=== PATIENT | male | born 1965 | race Caucasian/White ===

== ENCOUNTER 2020-01-12 22:04 | Inpatient (IN) | payer OTHER ==
[~2020-01-12] VITALS: Ht 182.9 cm; Wt 79.0 kg
[~2020-01-12 22:04] MED LIST: ETOMIDATE 20 MG/10 ML ONE; SUCCINYLCHOLINE 20 MG/ML, 10ML ONE
[2020-01-12] MEDS ORDERED: ONDANSETRON 2MG/ML, 2ML ONE (22:22)
[2020-01-12] MEDS ORDERED: PIPERACILLIN/TAZO/PMX 3.375GM 50 ML ONE (22:22)
[2020-01-12] MEDS ORDERED: NOREPINEPHRINE 1 MG/ML, 4ML ONE (22:23)
[2020-01-12] MEDS ORDERED: NOREPINEPHRINE 8 MG in SODIUM CHLORIDE 0.9% 242 ML IV PRN (22:30)
[2020-01-12] MEDS ORDERED: PLEASE ENTER ALLERGIES MC SCH (22:30)
[2020-01-12] MEDS ORDERED: VANCOMYCIN PER PHARMACY MC ONE (22:30)
[2020-01-12] MEDS ORDERED: PLEASE ENTER HEIGHT AND WEIGHT MC SCH ×2 (22:30)
[2020-01-12] MEDS ORDERED: PIPERACILLIN/TAZO/PMX 3.375GM 50 ML IVPB ONE (22:30)
--- NOTE | 2020-01-12 22:30 | NUR ---
PATIENT IS NOT ADEQUATELY SEDATED, WILL ATTEMPT TO SEDATE PATIENT PROPERLY. PATIENT WILL BE STARTED ON PROPOFOL, AND CONTINUED OF LEVOPHED. PATIENT PLACED IN FOUR POINT SOFT RESTRAINTS RELATED TO PATIENT SEDATION STATUS.
[2020-01-12 22:50] LABS: MEAN CORPUSCULAR HEMOGLOBIN 31.5 pg (27.5-34.5); MEAN CORPUSCULAR HGB CONC 32.3 g/dL (33.2-36.2); MEAN CORPUSCULAR VOLUME 97.3 fL (81-97); MEAN PLATELET VOLUME 9.8 fL (7.4-10.4); PLATELET COUNT 238 x10^3/uL (130-400); RED BLOOD COUNT 5.83 x10^6/uL (4.38-5.82); RED CELL DISTRIBUTION WIDTH 12.5 % (9.4-14.8)
[2020-01-12] MEDS ORDERED: ACETAMINOPHEN 325 MG SUPP ONE ×2 (22:56→22:58)
[2020-01-12] MEDS ORDERED: ACETAMINOPHEN 650 MG SUPP PR PRN (23:00)
[2020-01-12] MEDS ORDERED: ONDANSETRON 2MG/ML, 2ML IVPush ONE (23:00)
[2020-01-12] MEDS ORDERED: ETOMIDATE 20 MG/10 ML IVPush ONE (23:00)
[2020-01-12] MEDS ORDERED: MIDAZOLAM HCL 50 MG in SODIUM CHLORIDE 0.9% 40 ML IV PRN (23:05)
[2020-01-12] MEDS ORDERED: PROPOFOL 100 ML IV PRN (23:05)
[2020-01-12 23:12] LABS: ALBUMIN 3.5 g/dL (3.4-5.0); ANION GAP 18 mmol/L (5-15); CALCIUM 8.4 mg/dL (8.5-10.1); CHLORIDE 104 mmol/L (98-107)
[2020-01-12 23:14] LABS: ACETONE, SERUM Small (20mg/dL) (Negative)
[2020-01-12 23:18] LABS: ALANINE AMINOTRANSFERASE 57 U/L (12-78); ALKALINE PHOSPHATASE 98 U/L (45-117); BILIRUBIN,TOTAL 0.3 mg/dL (0.2-1.0); CREATININE 2.15 mg/dL (0.7-1.3); TOTAL PROTEIN 6.9 g/dL (6.4-8.2)
[2020-01-12 23:22] LABS: TROPONIN I 0.279 ng/mL (0.000-0.045)
[2020-01-12 23:29] LABS: MD YES
[2020-01-12] MEDS ORDERED: LACTATED RINGERS 1,000 ML IVBOLUS ONE (23:30)
[2020-01-12] MEDS ORDERED: INSULIN REGULAR 100 UNITS/ML, 3ML VIAL IVPush ONE (23:30)
[2020-01-12] MEDS ORDERED: VANCOMYCIN 1,600 MG in SODIUM CHLORIDE 0.9% 250 ML IV ONE (23:30)
--- NOTE | 2020-01-12 23:30 | NUR ---
PATIENT'S FAMILY AT BEDSIDE WITH PATIENT. PATIENT'S FAMILY UPDATED ON PLAN OF CARE. MOTHER AND GIRLFRIEND AT BEDSIDE WITH PATIENT.
[2020-01-12 23:41] LABS: BAND#(MANUAL) 9.36 x10^3/uL; BANDS%(MANUAL) 31 % (0-7); LYMPH#(MANUAL) 1.81 x10^3/uL (1-3.4); LYMPHS% (MANUAL) 6 % (22-44); METAMYELOCYTES% (MANUAL) 1 % (0-1); MONOS#(MANUAL) 3.93 x10^3/uL (0.3-2.7); MONOS% (MANUAL) 13 % (2-9); MYELOCYTES% (MANUAL) 2 % (0-0); SEG#(MANUAL) 14.19 x10^3/uL (1.8-6.8); SEGS% (MANUAL) 47 % (42-75)
[2020-01-12 23:43] LABS: <PLATELET ESTIMATE> ADEQUATE; LARGE PLATELETS 1+; POLYCHROMASIA 1+
[2020-01-12 23:44] LABS: ANISOCYTOSIS 1+
[2020-01-12] MEDS ORDERED: INSULIN SINGLE DOSE, ER ONE (23:57)
[2020-01-13] MEDS ORDERED: LISI-167 PO (00:38)
[2020-01-13] MEDS ORDERED: METF500T17 PO (00:38)
[2020-01-13] MEDS ORDERED: ROSU10TA2 PO (00:38)
[2020-01-13] MEDS ORDERED: DICL50TA2 PO (00:42)
--- NOTE | 2020-01-13 00:46 | NUR ---
PATIENT IS DIFFICULT TO SEDATE. PATIENT STARTED ON SECOND SEDATION DRIP, VERSED A RESULT. PATIENT'S BLOOD PRESSURES ARE TOLERATING SEDATION WELL, WITH LEVOPHED BEING ADMINISTERED.
--- NOTE | 2020-01-13 00:50 | NUR ---
CENTRAL LINE PLACEMENT COMPLETED, PATIENT TOLERATED WELL. PATIENT REQUIRED ADDITIONAL SEDATION MEDICATIONS FOR PROCEDURE.
--- NOTE | 2020-01-13 00:50 | NUR ---
20 ETOMIDATE, 50 SUCCINYCHOLINE ADMINISTERED FOR CENTRAL LINE PLACEMENT, RELATED TO KENNEDYNET'S LACK OF IMPROVEMENT WITH SEDATION METHODS.
[2020-01-13] MEDS ORDERED: DEXTROSE 4 GM TAB.CHEW PO PRN (01:00)
[2020-01-13] MEDS ORDERED: BISACODYL 10 MG SUPP PR PRN (01:00)
[2020-01-13] MEDS ORDERED: LACTULOSE 20 GM/30 ML UDC NG PRN (01:00)
[2020-01-13] MEDS ORDERED: VANCOMYCIN PER PHARMACY MC PRN (01:00)
[2020-01-13] MEDS ORDERED: SENNA/DOCUSATE TABLET NG PRN (01:00)
[2020-01-13] MEDS ORDERED: SENNA 176 MG/5 ML ORAL SOL NG PRN (01:00)
[2020-01-13] MEDS ORDERED: PIPERACILLIN/TAZO/PMX 3.375GM 50 ML IV SCH (01:00)
[2020-01-13] MEDS ORDERED: DEXTROSE 50%, 50ML SYRINGE IVPush PRN (01:00)
[2020-01-13] MEDS ORDERED: ONDANSETRON 2MG/ML, 2ML IV PRN (01:00)
[2020-01-13] MEDS ORDERED: SODIUM CHLORIDE 0.9% 1,000 ML IV SCH (01:00)
[2020-01-13] MEDS ORDERED: PHARMACY MAY ADJ FOR RENAL FX MC SCH (01:00)
[2020-01-13] MEDS ORDERED: FENTANYL PF 100 MCG/2ML IVPush PRN (01:00)
[2020-01-13] MEDS ORDERED: GLUCAGON 1 MG IM PRN (01:00)
[2020-01-13] MEDS ORDERED: PHARMACOKINETIC MONITORING MC PRN (01:30)
[2020-01-13] MEDS ORDERED: EMPA25TA PO (01:31)
[2020-01-13] MEDS ORDERED: GLIP5TAB10 PO (01:31)
[2020-01-13] MEDS ORDERED: CYCL5TAB PO (01:31)
[2020-01-13] MEDS ORDERED: HEPARIN 5,000 UNITS/ML, 1ML ONE (01:36)
[2020-01-13] MEDS: HEPARIN 5,000 UNITS/ML, 1ML SQ SCH ×3 (01:40→17:16)
[2020-01-13 01:48] LABS: TRIGLYCERIDES 549 mg/dL (50-200)
--- NOTE | 2020-01-13 01:50 | NUR ---
AT HOME MEDICATIONS GIVEN TO FAMILY. MED REC DONE ACCORDING TO FAMILY REPORT AND MEDICATIONS AVAILABLE.
[2020-01-13 01:54] LABS: TROPONIN I 0.262 ng/mL (0.000-0.045)
[2020-01-13] MEDS: PROPOFOL 100 ML IV PRN ×3 (02:19→10:28)
[2020-01-13] MEDS ORDERED: ETOMIDATE 20 MG/10 ML IVPush ONE (02:30)
[2020-01-13] MEDS ORDERED: SUCCINYLCHOLINE 20 MG/ML, 10ML IVPush ONE (02:30)
[2020-01-13 02:45] LABS: FREE T4 (FREE THYROXINE) 1.06 ng/dL (0.76-1.46)
[2020-01-13 02:58] VITALS: BP 133/59
[2020-01-13 03:00] VITALS: BP 132/62
[2020-01-13 03:07] LABS: AMPHETAMINE SCREEN, URINE Negative (Negative); BARBITURATE SCREEN, URINE Negative (Negative); BENZODIAZEPINE SCREEN, URINE Positive (Negative); CANNABINOID SCREEN, URINE Negative (Negative); COCAINE SCREEN, URINE Negative (Negative); METHADONE SCREEN, URINE Negative (Negative); OPIATE SCREEN, URINE Negative (Negative)
[2020-01-13] MEDS: NOREPINEPHRINE 8 MG in SODIUM CHLORIDE 0.9% 242 ML IV PRN ×3 (03:18→10:24)
[2020-01-13] MEDS: MIDAZOLAM HCL 50 MG in SODIUM CHLORIDE 0.9% 40 ML IV PRN ×4 (03:18→22:11)
[2020-01-13] MEDS: INSULIN LISPRO 100 UNITS/ML, PEN SQ-INSULIN SCH ×4 (03:28→23:27)
[2020-01-13 05:58] LABS: ALANINE AMINOTRANSFERASE 48 U/L (12-78); ALBUMIN 3.2 g/dL (3.4-5.0); ANION GAP 13 mmol/L (5-15); CALCIUM 8.2 mg/dL (8.5-10.1); CHLORIDE 111 mmol/L (98-107); CREATININE 1.78 mg/dL (0.7-1.3)
[2020-01-13 06:00] LABS: ALKALINE PHOSPHATASE 74 U/L (45-117); BILIRUBIN,TOTAL 0.5 mg/dL (0.2-1.0); TOTAL PROTEIN 6.2 g/dL (6.4-8.2)
[2020-01-13 06:17] LABS: MEAN CORPUSCULAR HEMOGLOBIN 31.9 pg (27.5-34.5); MEAN CORPUSCULAR VOLUME 96.6 fL (81-97); MEAN PLATELET VOLUME 9.8 fL (7.4-10.4); PLATELET COUNT 246 x10^3/uL (130-400); RED BLOOD COUNT 5.43 x10^6/uL (4.38-5.82); RED CELL DISTRIBUTION WIDTH 12.7 % (9.4-14.8)
[2020-01-13] MEDS ORDERED: MAGNESIUM SULFATE PMX 2GM/50ML 50 ML IV ONE (06:30)
[2020-01-13 06:51] LABS: MD YES
[2020-01-13 06:52] LABS: BAND#(MANUAL) 0.72 x10^3/uL; BANDS%(MANUAL) 3 % (0-7); LYMPH#(MANUAL) 4.08 x10^3/uL (1-3.4); LYMPHS% (MANUAL) 17 % (22-44); MONOS#(MANUAL) 1.68 x10^3/uL (0.3-2.7); MONOS% (MANUAL) 7 % (2-9); SEG#(MANUAL) 17.52 x10^3/uL (1.8-6.8); SEGS% (MANUAL) 73 % (42-75)
[2020-01-13 06:53] LABS: ANISOCYTOSIS 1+; POLYCHROMASIA 1+
[2020-01-13 06:54] LABS: <PLATELET ESTIMATE> ADEQUATE; <PLT MORPHOLOGY> NORMAL PLT MORPH
[2020-01-13] MEDS: PANTOPRAZOLE 40 MG IV IVPush SCH (08:59)
[2020-01-13] MEDS: SODIUM CHLORIDE FLUSH 10ML SYR IVF SCH ×2 (09:33→21:26)
[2020-01-13] MEDS: AMPICILLIN 2 GM in SODIUM CHLORIDE 0.9% 100 ML IV SCH ×4 (09:33→22:22)
[2020-01-13] MEDS: CEFTRIAXONE PMX 2GM/50ML 50 ML IVPB SCH ×2 (09:33→21:26)
[2020-01-13] MEDS: FENTANYL PF 1,000 MCG in SODIUM CHLORIDE 0.9% 80 ML IV PRN ×2 (11:21→19:24)
[2020-01-13 11:46] LABS: MICROSCOPIC INDICATED
[2020-01-13] MEDS ORDERED: NOREPINEPHRINE 32 MG in SODIUM CHLORIDE 0.9% 218 ML IV PRN (12:00)
[2020-01-13] MEDS: THIAMINE 200 MG in SODIUM CHLORIDE 0.9% 50 ML IV SCH (12:26)
[2020-01-13] MEDS: INSULIN GLARGINE 100 UNITS/ML, PEN SQ-INSULIN SCH (21:00)
[2020-01-13] MEDS: LIDOCAINE-MPF 1%, 2ML ENDO PRN (22:20)
[2020-01-13] MEDS ORDERED: VANCOMYCIN 1,600 MG in SODIUM CHLORIDE 0.9% 250 ML IV SCH (23:30)
[2020-01-14] MEDS: HEPARIN 5,000 UNITS/ML, 1ML SQ SCH (00:23)
[2020-01-14] MEDS: AMPICILLIN 2 GM in SODIUM CHLORIDE 0.9% 100 ML IV SCH ×2 (01:37→05:43)
[2020-01-14] MEDS: LIDOCAINE-MPF 1%, 2ML ENDO PRN (02:45)
[2020-01-14] MEDS: INSULIN LISPRO 100 UNITS/ML, PEN SQ-INSULIN SCH ×5 (03:00→21:00)
[2020-01-14 03:55] LABS: CHLORIDE 116 mmol/L (98-107)
[2020-01-14 04:01] LABS: ALANINE AMINOTRANSFERASE 31 U/L (12-78); ALBUMIN 2.9 g/dL (3.4-5.0); ALKALINE PHOSPHATASE 59 U/L (45-117); ANION GAP 10 mmol/L (5-15); BILIRUBIN,TOTAL 0.3 mg/dL (0.2-1.0); CALCIUM 8.3 mg/dL (8.5-10.1); CREATININE 0.93 mg/dL (0.7-1.3); TOTAL PROTEIN 6.2 g/dL (6.4-8.2)
[2020-01-14 04:05] LABS: BASOPHILS # (AUTO) 0.21 x10^3/uL (0-0.1); BASOPHILS % (AUTO) 1 % (0-1); EOSINOPHILS # (AUTO) 0.89 x10^3/uL (0-0.4); EOSINOPHILS % (AUTO) 5 % (1-7); LYMPHOCYTES # (AUTO) 2.98 x10^3/uL (1-3.4); LYMPHOCYTES % (AUTO) 18 % (22-44); MD NO; MEAN CORPUSCULAR HGB CONC 33.1 g/dL (33.2-36.2); MEAN CORPUSCULAR VOLUME 96.6 fL (81-97); MEAN PLATELET VOLUME 9.6 fL (7.4-10.4); MONOCYTES # (AUTO) 1.22 x10^3/uL (0.2-0.8); MONOCYTES % (AUTO) 7 % (2-9); NEUTROPHILS # (AUTO) 11.35 x10^3/uL (1.8-6.8); NEUTROPHILS % (AUTO) 68 % (42-75); PLATELET COUNT 212 x10^3/uL (130-400); RED BLOOD COUNT 4.78 x10^6/uL (4.38-5.82); RED CELL DISTRIBUTION WIDTH 12.8 % (9.4-14.8)
[2020-01-14 04:07] LABS: BILIRUBIN, DIRECT < 0.1 mg/dL (0.1-0.2); BILIRUBIN,INDIRECT 0.2 mg/dL (0.0-2.0)
[2020-01-14 04:32] VITALS: BP 105/69
[2020-01-14] MEDS: FENTANYL PF 1,000 MCG in SODIUM CHLORIDE 0.9% 80 ML IV PRN (05:43)
[2020-01-14] MEDS ORDERED: POTASSIUM CHLORIDE 10% 20 MEQ/15 ML UDC PO ONE (06:30)
[2020-01-14] MEDS ORDERED: DIAZEPAM 10 MG TABLET ONE (08:18)
[2020-01-14] MEDS ORDERED: ENOXAPARIN 40 MG/0.4 ML ONE (08:19)
[2020-01-14] MEDS: CEFTRIAXONE PMX 2GM/50ML 50 ML IVPB SCH ×2 (08:25→21:40)
[2020-01-14] MEDS: PANTOPRAZOLE 40 MG IV IVPush SCH (08:26)
[2020-01-14] MEDS: SODIUM CHLORIDE FLUSH 10ML SYR IVF SCH ×2 (08:27→21:00)
[2020-01-14] MEDS ORDERED: DIAZEPAM ELIXIR 1 MG/ML PO PRN (08:30)
[2020-01-14] MEDS: THIAMINE 200 MG in SODIUM CHLORIDE 0.9% 50 ML IV SCH (08:38)
[2020-01-14] MEDS: INSULIN GLARGINE 100 UNITS/ML, PEN SQ-INSULIN SCH ×3 (09:00→21:00)
[2020-01-14] MEDS: ENOXAPARIN 40 MG/0.4 ML SQ SCH (10:13)
[2020-01-14] MEDS: AZITHROMYCIN 500 MG in SODIUM CHLORIDE 0.9% 250 ML IV SCH (11:22)
[2020-01-14] MEDS ORDERED: LORazepam 2 MG/ML, 1ML IV PRN ×4 (13:00)
[2020-01-14] MEDS ORDERED: LORazepam 0.5MG TABLET PO PRN (13:00)
[2020-01-14] MEDS ORDERED: LORazepam 1MG TABLET PO PRN ×3 (13:00)
[2020-01-15] VITALS (8 sets, daily range): BP systolic 118–145; BP diastolic 72–94
[2020-01-15] MEDS ORDERED: MELATONIN 5 MG TABLET ONE (00:18)
[2020-01-15] MEDS: MELATONIN 5 MG TABLET PO SCH ×2 (00:19→22:37)
[2020-01-15] MEDS: INSULIN LISPRO 100 UNITS/ML, PEN SQ-INSULIN SCH ×5 (03:00→22:38)
[2020-01-15 04:30] LABS: ANION GAP 13 mmol/L (5-15); CALCIUM 9.2 mg/dL (8.5-10.1); CHLORIDE 113 mmol/L (98-107); CREATININE 0.75 mg/dL (0.7-1.3)
[2020-01-15 04:34] LABS: MEAN CORPUSCULAR HEMOGLOBIN 31.6 pg (27.5-34.5); MEAN CORPUSCULAR HGB CONC 32.6 g/dL (33.2-36.2); MEAN CORPUSCULAR VOLUME 96.7 fL (81-97); PLATELET COUNT 178 x10^3/uL (130-400); RED BLOOD COUNT 4.25 x10^6/uL (4.38-5.82); RED CELL DISTRIBUTION WIDTH 12.7 % (9.4-14.8)
[2020-01-15 05:26] LABS: BASOPHILS # (AUTO) 0.03 x10^3/uL (0-0.1); BASOPHILS % (AUTO) 0 % (0-1); EOSINOPHILS # (AUTO) 1.93 x10^3/uL (0-0.4); EOSINOPHILS % (AUTO) 16 % (1-7); LYMPHOCYTES # (AUTO) 2.64 x10^3/uL (1-3.4); LYMPHOCYTES % (AUTO) 22 % (22-44); MD SCAN; MONOCYTES # (AUTO) 1.01 x10^3/uL (0.2-0.8); MONOCYTES % (AUTO) 8 % (2-9); NEUTROPHILS % (AUTO) 54 % (42-75)
[2020-01-15] MEDS: PANTOPRAZOLE 40 MG IV IVPush SCH (09:23)
[2020-01-15] MEDS: SODIUM CHLORIDE FLUSH 10ML SYR IVF SCH ×2 (09:23→22:40)
[2020-01-15] MEDS: CEFTRIAXONE PMX 2GM/50ML 50 ML IVPB SCH ×2 (09:24→22:41)
[2020-01-15] MEDS: ENOXAPARIN 40 MG/0.4 ML SQ SCH (09:30)
[2020-01-15] MEDS: INSULIN GLARGINE 100 UNITS/ML, PEN SQ-INSULIN SCH (09:31)
[2020-01-15] MEDS: THIAMINE 200 MG in SODIUM CHLORIDE 0.9% 50 ML IV SCH (10:14)
[2020-01-15] MEDS: AZITHROMYCIN 500 MG in SODIUM CHLORIDE 0.9% 250 ML IV SCH (11:28)
[2020-01-15] MEDS: NICOTINE 14MG/24 HR PATCH.TD24 TD SCH (11:33)
[2020-01-15] MEDS ORDERED: INSULIN GLARGINE 100 UNITS/ML, PEN SQ-INSULIN SCH (21:00)
[2020-01-16 02:08] VITALS: BP 128/81
[2020-01-16] MEDS ORDERED: [UNRECOGNIZED DRUG - OTHER] (02:40)
[2020-01-16] MEDS ORDERED: LIPO FLAVONOID (02:40)
[2020-01-16] MEDS ORDERED: LISI-167 PO (02:41)
[2020-01-16] MEDS: INSULIN LISPRO 100 UNITS/ML, PEN SQ-INSULIN SCH ×2 (07:00→12:21)
[2020-01-16 07:19] VITALS: BP 109/74
[2020-01-16] MEDS: SODIUM CHLORIDE FLUSH 10ML SYR IVF SCH (09:34)
[2020-01-16] MEDS: THIAMINE 200 MG in SODIUM CHLORIDE 0.9% 50 ML IV SCH (09:35)
[2020-01-16] MEDS: CEFTRIAXONE PMX 2GM/50ML 50 ML IVPB SCH (10:23)
[2020-01-16] MEDS: PANTOPRAZOLE 40 MG IV IVPush SCH (10:24)
[2020-01-16] MEDS: ENOXAPARIN 40 MG/0.4 ML SQ SCH (10:33)
[2020-01-16] MEDS: AZITHROMYCIN 500 MG in SODIUM CHLORIDE 0.9% 250 ML IV SCH (11:07)
[2020-01-16] MEDS ORDERED: GADOTERATE 10 MMOL/20 ML SYR ONE (11:50)
[2020-01-16] MEDS: NICOTINE 14MG/24 HR PATCH.TD24 TD SCH (12:23)
[2020-01-16 12:31] VITALS: BP 130/89
[2020-01-16] MEDS ORDERED: SULF1TAB24 PO (13:22)
[2020-01-16] MEDS ORDERED: GEMF600T8 PO (13:51)
== END 2020-01-16 15:16 | disposition home or self-care (01) | DRG 871 ==
LOC: ED 22:28 → EDIP 01-13 02:01 → CCU 01-13 02:02 → 3N 01-15 12:48 → DCLOUNGE 01-16 15:04
PROVIDERS: ADMIT Family Medicine; ATTEND Hospitalist
PROC: 0T9B70Z Drainage of Bladder with Drainage Device, Via Natural or Artificial Opening (ICD-10-PCS; principal; 2020-01-13)
PROC: 02HV33Z Insertion of Infusion Device into Superior Vena Cava, Percutaneous Approach (ICD-10-PCS; 2020-01-13)
DX: A41.9 Sepsis, unspecified organism (principal); G92 Toxic encephalopathy; I21.A1 Myocardial infarction type 2; J15.6 Pneumonia due to other Gram-negative bacteria; J96.01 Acute respiratory failure with hypoxia; N17.0 Acute kidney failure with tubular necrosis; R65.21 Severe sepsis with septic shock; E87.0 Hyperosmolality and hypernatremia; E87.2 Acidosis; Z99.11 Dependence on respirator [ventilator] status; D72.823 Leukemoid reaction; E78.1 Pure hyperglyceridemia; E11.65 Type 2 diabetes mellitus with hyperglycemia; E86.0 Dehydration; F10.10 Alcohol abuse, uncomplicated; F17.200 Nicotine dependence, unspecified, uncomplicated; G89.29 Other chronic pain; H91.91 Unspecified hearing loss, right ear; H93.19 Tinnitus, unspecified ear; I10 Essential (primary) hypertension; D75.1 Secondary polycythemia; Z20.828 Contact with and (suspected) exposure to other viral communicable diseases; M19.90 Unspecified osteoarthritis, unspecified site; Z71.6 Tobacco abuse counseling
CPT/HCPCS: 36415; 36600; 84145; J3490; 70553; 71045; 76700; 80048; 80053; 80076; 80307; 81001; 82010; 82533; 82803; 82962; 83036; 83605; 83690; 83735; 84100; 84439; 84443; 84478; 84484; 85025; 87040; 87070; 87077; 87081; 87086; 87186; 87205; 93005; 93306; 93880; 94002; 94003; G0378; J0290; J0456; J0696; J1644; J1650; J2250; J2405; J2543; J2704; J3010; J3370; J3411; A9575; C9113; J0330; J1815; J3475; J7030; J7050; J7120